=== PATIENT | female | born 1990 | race Caucasian/White ===

== ENCOUNTER 2018-08-20 06:59 | Emergency (ER) | payer BC, SELFPAY ==
[2018-08-20 07:06] VITALS: BP 118/70; PULSE 98; RESP 12; TEMP 36.8; O2SAT 98
[2018-08-20 07:13] LABS: Bilirubin Negative (Negative); Blood Large (Negative); Clarity Cloudy; Glucose Negative (Negative); Ketones Negative (Negative); Leukocyte Esterase Large (Negative); Nitrite Negative (Negative); Specific Gravity 1.025 (1.005-1.025)
--- NOTE | 2018-08-20 07:21 | ED.GENADUL_ITS ---
Discharge Plan Disposition Patient Disposition: HOME Condition: Stable Discharge Details Chief Complaint: Urinary Clinical Impression: Urinary tract infection Primary Care Provider: Maria A Cutler ED Provider: Lg Ibarra Home Meds and New Rx's Prescriptions: New cephalexin 500 mg capsule 500 mg PO TID 7 Days Qty: 21 RF: 0 phenazopyridine [Pyridium] 100 mg tablet 100 mg PO TID PRN (Reason: pain) 0 Days Qty: 6 RF: 0 No Action Mirena 20 mcg/24 hours (5 yrs) 52 mg Intrauterine Device 1 device INTRAUTERINE ONCE RF: 0 sumatriptan succinate 100 mg Tablet 100 mg PO DAILY PRNRF: 0 citalopram 20 mg Tablet 20 mg PO DAILY RF: 0 nortriptyline 10 mg Capsule 10 - 30 mg PO QHS RF: 0 Discharge Instructions Instructions: Urinary Tract Infection in Women (ED) Additional Instructions: Follow-up with Dr. Cutler in clinic if not improving in 3 to 5 days time. Take antibiotics as prescribed. No contact lens use while using Pyridium. Return for any acute concern Medical Decision Making Healthy 28-year-old female presents with recurrent symptoms of UTI over 4 to 5 days time. She said increased frequency and burning with urination. She arrives afebrile, with a pulse in the 90s but otherwise unremarkable exam. Urinalysis We will treat with Pyridium as well as a course of Keflex. She is stable and appropriate for discharge to home. HPI General Mode of arrival: ambulatory . Date/Time Provider Initiated Documentation: 08/20/18 07:01 . Limitations to Documentation: no limitations . Information obtained by: patient . History of Present Illness 28 year old F presents to the emergency department with the chief complaint of Recurrent UTI, described as similar to prior episodes, Quality is described as burning and dull, and is localized to the pelvis. Patient reports no radiation. Patient started experiencing this day(s) and it has been intermittent. No relieving factors improve symptom(s), Patient notes denies fever/chills and nausea/vomiting. Patient did receive the following treatments prior to arrival, none Related Data Home Medications Medication Instructions Recorded Confirmed cephalexin 500 mg PO TID 7 Days #21 cap 08/20/18 citalopram 20 mg PO DAILY 08/20/18 08/20/18 levonorgestrel [Mirena] 1 device INTRAUTERINE ONCE 08/20/18 08/20/18 nortriptyline 10 - 30 mg PO QHS 08/20/18 08/20/18 phenazopyridine [Pyridium] 100 mg PO TID PRN 0 Days #6 tab 08/20/18 sumatriptan succinate 100 mg PO DAILY PRN 08/20/18 08/20/18 Previous Rx's Medication Instructions Recorded cephalexin 500 mg PO TID 7 Days #21 cap 08/20/18 phenazopyridine [Pyridium] 100 mg PO TID PRN 0 Days #6 tab 08/20/18 Allergies Allergy/AdvReac Type Severity Reaction Status Date / Time No Known Allergies Allergy Unverified 08/20/18 07:13 General Stated Complaint: Urinary FREDDIE: 3 Review of Systems Review of Systems 6 systems reviewed and otherwise negative [facility] Social History Smoking/Tobacco Use Status: Never Alcohol Intake: never Drug use: Never Substance use type: does not use Do you feel safe at home: Yes Do you feel safe in your relationship?: Yes Exam Narrative Exam Narrative: GEN: awake, alert, oriented 3. Pleasant, well groomed, interactive. HEAD: Normocephalic, atraumatic ENT: Mucous membranes moist, oropharynx unremarkable, External ear exam unremarkable EYES: PERRL, EOMI NECK: Full ROM, no OANH, no menigismus CHEST/RESP: Nontender, clear to auscultation bilateral, no wheeze/rhonchi/rales CARDIOVASCULAR: RRR, no murmur, rub amy. 2+ Rad pulse bilateral ABDOMEN: Soft, nontender, no mass. +Bowel sounds EXT: Full ROM, no edema, no rash Neuro: Grossly normal neurologic exam, conversant, interactive. Psych: Speech fluent, thoughts congruent, affect normal Course Vital Signs Temperature 36.8 C 08/20/18 07:06 Pulse 98 H 08/20/18 07:06 Respiratory Rate 12 08/20/18 07:06 Blood Pressure 118/70 08/20/18 07:06 Pulse Oximetry 98 08/20/18 07:06 Temperature 36.8 C 08/20/18 07:06 Temperature Source Temporal Artery Scan 08/20/18 07:06 Pulse 98 H 08/20/18 07:06 Respiratory Rate 12 08/20/18 07:06 Respiratory Effort Non-Labored 08/20/18 07:11 Blood Pressure 118/70 08/20/18 07:06 Blood Pressure Position Sitting 08/20/18 07:06 Pulse Oximetry 98 08/20/18 07:06 Oxygen Delivery Method Room Air 08/20/18 07:06 Oxygen Flow Rate 0 08/20/18 07:06 Pain Level 0 08/20/18 07:12
[2018-08-20 07:29] LABS: Bacteria Many HPF (Negative); C & S Indicated? Yes; Crystals Negative HPF (Negative); Epithelial Cells Rare HPF (Negative); Mucus Negative (Negative); RBC 20-50 (0-2); WBC >50 HPF (0-5)
== END 2018-08-20 07:38 | disposition home or self-care (01) ==
PROVIDERS: Emergency Provider Emergency Medicine; PCP Family Medicine
DX: N39.0 Urinary tract infection, site not specified (principal); B96.20 Unspecified Escherichia coli [E. coli] as the cause of diseases classified elsewhere
CPT/HCPCS: 87077; 99283; 81003; 81015; 87086; 87186

== ENCOUNTER 2018-09-10 13:19 | Emergency (ER) | payer BC, SELFPAY ==
[2018-09-10 13:28] VITALS: BP 123/86; PULSE 120; RESP 16; TEMP 36.8; O2SAT 98
--- NOTE | 2018-09-10 14:02 | ED.GENADUL_ITS ---
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 Please call as soon as possible to schedule an appointment to be seen in follow-up by [facility] as we discussed, and also by your primary care doctor. Referrals: Maria A Cutler [Primary Care Provider] - Medical Decision Making Jadyn Berger is a 28-year-old woman presenting to the emergency department requesting medical medication. On exam patient is very well and nontoxic appearing. Benign abdominal exam. Heart rate 104. Patient reports that she has significant stress, and would like to undergo as soon as possible, which she believes is the reason for her elevated heart rate. I discussed further evaluation for her elevated heart rate, but she declines further observation or testing in the emergency department. Exam/history is not consistent with ectopic , sepsis, other acute emergent life-threatening process. I contacted [facility], who stated that the nearest facility that would provide medical is [facility]. I relayed this information to the patient. I had a lengthy discussion with the patient regarding return to emergency department precautions, importance of outpatient follow-up with OB/gynecology and PCP. Patient verbalized understanding the plan was amenable. All questions were answered. Patient was discharged home with clear plan for outpatient follow-up. Medical Records Medical records reviewed: Yes I reviewed the patient's medical records. HPI General Mode of arrival: ambulatory . Date/Time Provider Initiated Documentation: 09/10/18 13:29 . Limitations to Documentation: no limitations . Information obtained by: patient, RN notes reviewed and old records reviewed . HPI Narrative: Jadyn Faust is a 28-year-old woman G3, P2 without history of depression, migraine presenting to the emergency department for medical medication. Patient reports that her last menstrual period was in early August. She reports that she has taken 5 test in the past few days, with 3+ and 2-. Patient reports that she was told by [facility] today that they could not prescribe medical medication and referred her to the emergency department. Patient denies having any complaints. She denies any vaginal bleeding, any abdominal pain, any other pain, fever, vomiting. She reports mild nausea. Has been eating and drinking as usual. Patient states that she has 2 small children. Patient states that she does not want any work- up today, but would like to undergo medical soon as possible which is the reason for her visit to the emergency department. 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: 4 Review of Systems Review of Systems Constitutional: denies fevers Eyes: denies eye pain ENT: denies facial pain, dental pain, sore throat Cardiovascular: denies chest pain Respiratory: denies SOB, cough GI: denies abdominal pain, vomiting, diarrhea, reports mild nausea : denies flank pain MSK: denies back pain, neck pain, arthralgias, myalgias Skin: denies rash Neuro: denies headaches, numbness, weakness [facility] Social History Smoking/Tobacco Use Status: Never Alcohol Intake: never Drug use: Never Substance use type: does not use Do you feel safe at home: Yes Do you feel safe in your relationship?: Yes Exam Narrative Exam Narrative: Constitutional: well and [id number], pleasant, conversing normally HENT: head atraumatic/normocephalic/normal inspection, mucous membranes moist Eyes: conjunctiva normal, sclera normal, pupils 3mm b/l Neck: no stridor, normal ROM, trachea midline Chest: normal inspection Resp: normal work of breathing, LCTAB Cardio: tachycardic rate 104, normal rhythm, no murmur appreciated GI: abdomen soft, non-tender, non-distended Skin: warm, dry, normal color, no rash Neuro: alert, not altered, grossly non-focal, normal tone, normal gait Psych: normal mood, normal affect, normal behavior Course Vital Signs Temperature 36.8 C 09/10/18 13:28 Pulse 120 H 09/10/18 13:28 Respiratory Rate 16 09/10/18 13:28 Blood Pressure 123/86 09/10/18 13:28 Pulse Oximetry 98 09/10/18 13:28 Temperature 36.8 C 09/10/18 13:28 Temperature Source Skin 09/10/18 13:28 Pulse 120 H 09/10/18 13:28 Respiratory Rate 16 09/10/18 13:28 Respiratory Effort Non-Labored 09/10/18 13:28 Blood Pressure 123/86 09/10/18 13:28 Blood Pressure Position Sitting 09/10/18 13:28 Pulse Oximetry 98 09/10/18 13:28 Oxygen Delivery Method Room Air 09/10/18 13:28 Oxygen Flow Rate 0 09/10/18 13:28 Pain Level 0 09/10/18 14:00
[2018-09-10 14:07] VITALS: BP 123/86; PULSE 120; RESP 16; TEMP 36.8; O2SAT 98
== END 2018-09-10 14:07 | disposition home or self-care (01) ==
PROVIDERS: Emergency Provider Student in an Organized Health Care Education/Training Program; PCP Family Medicine
DX: N92.6 Irregular menstruation, unspecified (principal); R00.0 Tachycardia, unspecified
CPT/HCPCS: 99282

== ENCOUNTER 2019-03-06 08:49 | Emergency (ER) | payer BC, SELFPAY ==
[2019-03-06 08:55] VITALS: BP 118/79; PULSE 76; RESP 16; TEMP 36.6; O2SAT 94
--- NOTE | 2019-03-06 08:59 | ED.GENADUL_ITS ---
Discharge Plan Disposition Patient Disposition: HOME Condition: Improving Discharge Details Chief Complaint: Urinary Clinical Impression: Urinary tract infection Primary Care Provider: Maria A Cutlre ED Provider: Lg Ibarra Home Meds and New Rx's Prescriptions: New phenazopyridine [Pyridium] 100 mg tablet 100 mg PO TID 2 Days Qty: 6 RF: 0 cephalexin 500 mg capsule 500 mg PO TID 7 Days Qty: 21 RF: 0 No Action sumatriptan succinate 100 mg Tablet 100 mg PO DAILY PRNRF: 0 Mirena 20 mcg/24 hours (5 yrs) 52 mg Intrauterine Device INTRAUTERINE RF: 0 Discharge Instructions Instructions: Urinary Tract Infection in Women (ED) Additional Instructions: Small, frequent sips of fluids to maintain hydration. Return for worsening symptoms or any other acute concerns. Take antibiotics and Pyridium as prescribed Medical Decision Making Delightful 29-year-old female presents from home with the second day of urinary urgency, frequency, burning. She is well-appearing with unremarkable vital signs, her exam is reassuring. She is not . Urinalysis consistent with acute UTI. Will treat with Pyridium and Keflex. Patient is stable for outpatient management. Lab Data Lab results reviewed: Yes I reviewed the patient's lab results. Labs: Laboratory Results - last 24 hr 03/06/19 08:53 Urine Color Yellow Urine Clarity Clear Urine pH 6.0 Ur Specific Mead >= 1.030 H Urine Protein 100 H Urine Ketones Negative Urine Blood Large H Urine Nitrite Negative Urine Bilirubin Small H Urine Urobilinogen 2.0 H Ur Leukocyte Esterase Moderate H Urine RBC Urine WBC >50 H Ur Epithelial Cells Not Applicable Urine Crystals Not Applicable Urine Bacteria Many Urine Casts Urine Mucus Not Applicable Ur Culture Indicated? Yes Urine Glucose Negative HPI General Mode of arrival: ambulatory . Date/Time Provider Initiated Documentation: 03/06/19 08:49 . Limitations to Documentation: no limitations . Information obtained by: patient . History of Present Illness 29 year old F presents to the emergency department with the chief complaint of Urge to urinate, described as moderate and similar to prior episodes, Quality is described as constant, and is localized to the abdomen and pelvis. Patient reports no radiation. Patient started experiencing this hour(s) and it has been constant. No relieving factors improve symptom(s), Patient notes no other symptoms.; denies fever/chills and nausea/vomiting. Patient did receive the following treatments prior to arrival, none Related Data Home Medications Medication Instructions Recorded Confirmed sumatriptan succinate 100 mg PO DAILY PRN 08/20/18 03/06/19 cephalexin 500 mg PO TID 7 Days #21 cap 03/06/19 levonorgestrel [Mirena] INTRAUTERINE 03/06/19 phenazopyridine [Pyridium] 100 mg PO TID 2 Days #6 tab 03/06/19 Previous Rx's Medication Instructions Recorded cephalexin 500 mg PO TID 7 Days #21 cap 03/06/19 phenazopyridine [Pyridium] 100 mg PO TID 2 Days #6 tab 03/06/19 Allergies Allergy/AdvReac Type Severity Reaction Status Date / Time No Known Allergies Allergy Unverified 03/06/19 08:59 General Stated Complaint: Urinary FREDDIE: 4 Review of Systems Narrative: 6 systems reviewed and otherwise negative [facility] Social History Smoking/Tobacco Use Status: Current every day Tobacco Type: cigarettes Alcohol Intake: current Alcohol Intake frequency: a few times a month Alcohol type: beer, wine and hard liquor Drug use: Never Substance use type: does not use Do you feel safe at home: Yes Do you feel safe in your relationship?: Yes Exam Narrative Exam Narrative: GEN: awake, alert, oriented 3. Pleasant, well groomed, interactive. HEAD: Normocephalic, atraumatic ENT: Mucous membranes moist, oropharynx unremarkable, External ear exam unremarkable EYES: PERRL, EOMI NECK: Full ROM, no OANH, no menigismus CHEST/RESP: Nontender, clear to auscultation bilateral, no wheeze/rhonchi/rales CARDIOVASCULAR: RRR, no murmur, rub amy. 2+ Rad pulse bilateral ABDOMEN: Soft, nontender, no mass. +Bowel sounds EXT: Full ROM, no edema, no rash Neuro: Grossly normal neurologic exam, conversant, interactive. Psych: Speech fluent, thoughts congruent, affect normal Course Vital Signs Vital signs: Vital Signs Temperature 36.6 C 03/06/19 08:55 Pulse 76 03/06/19 08:55 Respiratory Rate 16 03/06/19 08:55 Blood Pressure 118/79 03/06/19 08:55 Pulse Oximetry 94 L 03/06/19 08:55 Temperature 36.6 C 03/06/19 08:55 Temperature Source Skin 03/06/19 08:55 Pulse 76 03/06/19 08:55 Respiratory Rate 16 03/06/19 08:55 Respiratory Effort Non-Labored 03/06/19 08:55 Blood Pressure 118/79 03/06/19 08:55 Blood Pressure Position Sitting 03/06/19 08:55 Pulse Oximetry 94 L 03/06/19 08:55 Oxygen Delivery Method Room Air 03/06/19 08:55 Oxygen Flow Rate 0 03/06/19 08:55 Pain Level 2 03/06/19 08:55
[2019-03-06 09:08] LABS: Bilirubin Small (Negative); Blood Large (Negative); Clarity Clear (Clear); Glucose Negative (Negative); Ketones Negative (Negative); Leukocyte Esterase Moderate (Negative); Nitrite Negative (Negative); Specific Gravity >= 1.030 (1.005-1.025)
[2019-03-06 09:25] LABS: WBC >50 HPF (0-5)
[2019-03-06] MEDS: Cephalexin 500 MG CAP PO (09:25)
[2019-03-06] MEDS: Phenazopyridine 200 MG TAB PO (09:25)
[2019-03-06 09:26] LABS: Bacteria Many HPF (Negative); C & S Indicated? Yes
== END 2019-03-06 09:31 | disposition home or self-care (01) ==
PROVIDERS: Emergency Provider Emergency Medicine; PCP Family Medicine
DX: N39.0 Urinary tract infection, site not specified (principal)
CPT/HCPCS: 81025; 99283; 81003; 81015; 87086

== ENCOUNTER 2021-06-17 12:43 | Emergency (ER) | payer BC, SELFPAY ==
[2021-06-17 12:53] VITALS: BP 122/89; PULSE 111; RESP 16; TEMP 37.6; O2SAT 98
--- NOTE | 2021-06-17 13:00 | RT.EKG_ITS ---
APPROVED REPORT Exam: Resting ECG Reason for Exam: cough, chest pain Patient Location: E HR:99 bpm ECG Measurements Heart Rate 99 AXIS AK 136 P 77 QRSd 75 QRS 90 QT 342 T -47 QTc 437 Conclusion Sinus rhythm...normal P axis, V-rate 60- 99 Atrial premature complex...SV complex w/ short R-R interval Nonspecific T abnormalities, anterior leads...T <-0.10mV, V2-V4 sinus rhythm, normal axis, normal intervals; S1Q3T3 patterns, anteriolateral T wave flattening/invers ions
--- NOTE | 2021-06-17 13:00 | DI.CT_ITS ---
Exam(s) CT CHEST PE CTA EXAM: CT CHEST PE CTA CLINICAL HISTORY: sob, tachy, cough, recent covid. TECHNIQUE: Imaging Protocol: Axial CT angiography was performed with multi-slice acquisition and mu lti-planar and/or 3D reconstructions. CONTRAST MATERIAL: Intravenous: Omnipaque 350 Contrast volume:100 mL COMPARISON: No exams were available for comparison FINDINGS: Tracheobronchial tree: Patent where visualized. Pulmonary parenchyma: No consolidation or dominant measurable mass. No architectural distortion. Pulmonary Arteries: No evidence of filling defect to suggest pulmonary emboli. Mediastinum and Cammie: No dominant adenopathy or fluid collection. The esophagus is unremarkable. Visualized thyroid gland: Unremarkable. Pleura: No effusion or pneumothorax. Heart: The heart is not dilated. No coronary artery calcifications are seen. No pericardial effusion. Aorta: Thoracic aorta non-dilated. No evidence of dissection. Upper abdomen: Unremarkable. Soft tissues: Unremarkable. Bones: Within normal limits for the patient's age. IMPRESSION: No evidence of pulmonary embolism, thoracic aortic dissection or aneurysm. RADIATION DOSE DELIVERED: 267.49mGy.cm Total DLP DATA REPOSITORY: All CT scans at this facility are submitted to the National Radiology Data Registry (NRDR) Dose Index Registry (DIR) with the [employer] (ACR). RADIATION OPTIMIZATION: All CT scans at this facility use at least one of these dose optimization te chniques: automated exposure control; mA and/or kV adjustment per patient size (includes targeted exa ms where dose is matched to clinical indication); or iterative reconstruction.
--- NOTE | 2021-06-17 13:34 | ED.GENADUL_ITS ---
Discharge Plan Disposition Patient Disposition: HOME Condition: Improving Discharge Details Clinical Impression: Cough Primary Care Provider: Maria A Cutler ED Provider: Rah Lindsay Home Meds and New Rx's Prescriptions: New albuterol sulfate 90 mcg/actuation HFA aerosol inhaler 2 puff inhalation Q6H PRN (Reason: shortness of breath or wheezing) Qty: 6.7 0RF benzonatate 100 mg capsule 100 mg PO BID PRN (Reason: cough) 3 Days Qty: 6 0RF No Action Mirena 20 mcg/24 hours (5 yrs) 52 mg Intrauterine Device INTRAUTERINE 0RF Discharge Instructions Instructions: Acute Cough (ED) Additional Instructions: Please take medications as prescribed. Please return to the emergency department for worsening symptoms such as high fevers productive cough worsening shortness of breath chest pain or other abnormal symptoms. Medical Decision Making 31-year-old female recent Covid last month presents with cough shortness of breath and pleuritic type chest pain over the last 2 days. Tachycardic on arrival not hypoxic nontoxic speaking in full sentences does have some expiratory wheeze bilaterally wet sounding cough likely transmitted upper airway sounds, however given tachycardia pleuritic type chest pain and an S1 every 3 T3 pattern on EKG with sinus tachycardia must consider PE. Less likely ACS or aortic pathology. Muscle to consider superimposed pneumonia following viral respiratory illness. Screening labs imaging albuterol dexamethasone fluid likely home with close follow-up pending results Greatly improved after nebs and steroids as well as fluids. Heart rate has come down to normal. Still with slight nonproductive cough. No evidence of pneumonia or PE. Likely component of viral bronchitis, patient given home care instructions and return precautions. Will be discharged home with prescription for albuterol and Tessalon Perles HPI General Date/Time Provider Initiated Documentation: 06/17/21 13:02 . HPI Narrative: 31-year-old female denies past medical history endorses cough wheezing and pleuritic type chest pain over the last 1 to 2 days. Denies leg swelling or pain denies history of thromboembolic phenomenon. Recent Covid last month. Describing episodes of posttussive emesis. Related Data Home Medications Medication Instructions Recorded Confirmed levonorgestrel 20 mcg/24 hours (7 INTRAUTERINE 03/06/19 yrs) 52 mg intrauterine device (Mirena) albuterol sulfate 90 mcg/actuation 2 puff INHALATION Q6H PRN #6.7 g 04/15/22 aerosol inhaler benzonatate 100 mg capsule 100 mg PO BID PRN 3 Days #6 cap 06/17/21 Previous Rx's Medication Instructions Recorded albuterol sulfate 90 mcg/actuation 2 puff INHALATION Q6H PRN #6.7 g 06/17/21 aerosol inhaler benzonatate 100 mg capsule 100 mg PO BID PRN 3 Days #6 cap 06/17/21 Allergies Allergy/AdvReac Type Severity Reaction Status Date / Time No Known Allergies Allergy Unverified 06/17/21 12:58 General Stated Complaint: RespSymp FREDDIE: 3 Review of Systems Narrative: Review of Systems Constitutional: negative Eyes: negative ENT: negative Cardiovascular: negative Respiratory: Cough, shortness of breath Gastrointestinal: negative : negative Musculoskeletal: negative Skin: negative Neurologic: negative Psych: negative PFSH All Active Problems (Updated 06/17/21 @ 14:49 by Rah Lindsay MD) Cough (Acute) Social History Smoking/Tobacco Use Status: Former Tobacco Use Smoking risk assessment performed?: Yes Alcohol Intake: current Alcohol Intake frequency: a few times a month Alcohol type: beer, wine and hard liquor Drug use: Never Substance use type: does not use Do you feel safe at home: Yes Do you feel safe in your relationship?: Yes Exam Narrative Exam Narrative: Physical Examination General: alert, awake, cooperative, resting comfortably, no acute distress HEENT: normocephalic, atraumatic; PERRL, EOM intact, conjunctiva normal; no nasal discharge; moist mucous membranes, oral and pharyngeal mucosa normal, tolerating secretions Neck: supple, trachea midline; full ROM Chest: normal to inspection Respiratory: Bilateral expiratory wheeze, transmitted upper respiratory sounds Cardiac: Tachycardia, regular rhythm, S1S2 intact, no murmurs rubs or gallops GI: abdomen soft, non-tender, non-distended; no palpable mass or hepatosplenomegaly Skin: no lesions, rashes or trauma appreciated Neuro: AAOx3, normal speech, moving all extremities Extremities: No peripheral edema Psych: Appropriate mood and affect Course Vital Signs Vital signs: Vital Signs Temperature 37.6 C H 06/17/21 12:53 Pulse 111 H 06/17/21 12:53 Respiratory Rate 16 06/17/21 12:53 Blood Pressure 122/89 06/17/21 12:53 Pulse Oximetry 98 06/17/21 12:53 Temperature 37.6 C H 06/17/21 12:53 Temperature Source Oral 06/17/21 12:53 Pulse 111 H 06/17/21 12:53 Respiratory Rate 16 06/17/21 12:53 Respiratory Effort 06/17/21 12:59 Respiratory Depth Normal 06/17/21 12:59 Blood Pressure 122/89 06/17/21 12:53 Blood Pressure Position Sitting 06/17/21 12:53 Pulse Oximetry 98 06/17/21 12:53 Oxygen Delivery Method Room Air 06/17/21 12:53 Oxygen Flow Rate 0 06/17/21 12:53 Pain Level 0 06/17/21 12:53 PAWSS Have you Been Recently Intoxicated or Drunk Within the Last 30 days?: Yes Have you Ever Experienced Previous Episodes of Alcohol Withdrawal?: No Have you ever Experienced Withdrawal Seizures?: No Have you ever Experienced Delirium Tremens(DT)s?: No Have you ever undergone Alcohol Rehabilitation Treatment (i.e, inpt ot outpatient treatment programs)?: No Have you ever Experienced Blackouts?: No Have you ever Combined Alcohol with other Downers within the last 90 days?: No Have you ever Combined Alcohol with any other Substance of Abuse during the last 90 days?: No Positive Blood Alcohol level on Presentation? [PCS.BAL]: No Evidence of Increased Autonomic Activity (i.e. HR>120, tremor, sweating, agitation, nausea)?: No Result: 1
[2021-06-17 13:45] LABS: Abs Immature Grans 0.03 10^3/uL (0.0-0.06); Absolute Basophil Count 0.02 10^3/uL (0.0-0.2); Absolute Eosinophil Count 0.07 10^3/uL (0.0-0.7); Absolute Lymphocyte Count 1.72 10^3/uL (1.2-3.4); Absolute Monocyte Count 0.65 10^3/uL (0.1-0.8); Absolute Neutrophil Count 5.24 10^3/uL (1.2-6.7); Basophils % 0.3; Eosinophils % 0.9; HCT 42.4 % (36.0-46.0); HGB 14.2 g/dL (11.2-15.7); Immature Grans % 0.4; Lymphocytes % 22.3; MCHC 33.5 % (32.0-36.0); MCV 89.6 fL (80-95); MPV 9.7 fL (8.0-11.0); Monocytes % 8.4; Neutrophils % 67.7; Platelet Count 233 10^3/uL (130-400); RBC 4.73 10^6/uL (3.93-5.22); RDW 12.7 % (11.7-14.6); RDW-SD 42.3 fL; WBC 7.73 10^3/uL (4.4-10.8)
[2021-06-17] MEDS: Dexamethasone 10 MG/ML VIAL IVP (13:47)
[2021-06-17] MEDS: Normal Saline 1,000 ML 1000 ML IV (13:47)
[2021-06-17] MEDS: Levalbuterol 1.25 MG/3 ML UPD VIAL UPD (13:47)
[2021-06-17 13:59] LABS: ALT 32 U/L (14-59); AST 24 U/L (15-37); Albumin 3.7 g/dL (3.4-5.0); Alkaline Phosphatase 66 U/L (46-116); Anion Gap 10.2 mmol/L (3-11); BUN 4 mg/dL (7-18); Bilirubin, Total 0.3 mg/dL (0.2-1.0); CO2 27.8 mmol/L (21.0-32.0); CREATININE 0.7 mg/dL (0.55-1.02); Calcium 8.9 mg/dL (8.5-10.1); Chloride 102 mmol/L (98-107); Glucose 107 mg/dL (74-106); NT-proBNP 24 pg/mL (<300); Potassium 3.2 mmol/L (3.5-5.1); Sodium 140 mmol/L (136-145); Total Protein 7.7 g/dL (6.4-8.2); Troponin I < 50 ng/L (<or=60)
[2021-06-17] MEDS: Omnipaque 350 MG/ML 100 ML BTL IJ (14:05)
[2021-06-17 14:33] VITALS: BP 128/67; PULSE 88; RESP 18; O2SAT 97
== END 2021-06-17 15:07 | disposition home or self-care (01) ==
PROVIDERS: Emergency Provider Emergency Medicine; PCP Family Medicine
DX: R05.1 Acute cough (principal); R07.9 Chest pain, unspecified; R06.02 Shortness of breath; R00.0 Tachycardia, unspecified; Z86.16 Personal history of COVID-19
CPT/HCPCS: 71275; 80053; 81025; 93005; 94640; 96361; 96374; 99285; 83880; 84484; 85025; 85610; 85730; 93010; 99284; J1100; J3490; J7614

== ENCOUNTER 2021-07-26 15:15 | Outpatient (REF) | payer BC, SELFPAY | END 2021-07-26 15:16 | disposition home or self-care (01) | LOC: LBN 15:15 | PROVIDERS: PCP Family Medicine; Visit Provider Nurse Practitioner Family | DX: N39.0 Urinary tract infection, site not specified (principal) | CPT/HCPCS: 87077; 87086; 87186 ==

== ENCOUNTER 2021-09-14 17:24 | Outpatient (REF) | payer BC, SELFPAY ==
[2021-09-16 11:36] LABS: COVID-19 RT-PCR UVMMC Result Negative (Negative)
[2021-09-16 14:24] LABS: Chlamydia Result Negative (Negative); GC Result Negative (Negative)
== END 2021-09-14 17:25 | disposition home or self-care (01) ==
LOC: LBN 17:24
PROVIDERS: PCP Family Medicine; Visit Provider Physician Assistant Medical
DX: J02.9 Acute pharyngitis, unspecified (principal); Z20.822 Contact with and (suspected) exposure to COVID-19
CPT/HCPCS: 87491; 87591; U0003; 87070